=== PATIENT | male | born 1980 | race Caucasian/White ===

== ENCOUNTER → 2021-08-30 | Day surgery (SDC) | payer OTHER ==
[~2021-08-30] MED LIST: ADDERALL 10 MG10 MG PO; ALBUTEROL0.63 MG/3 NEB; BUPIVACAINE HCL 0.5% INJ 30 ML VIAL INJ ONE; DEXAMETHASONE SOD PHOS INJ 4 MG/ML SDV ONE; EPINEPHRINE 1 MG/ML 30ML VIAL ONE; FENTANYL CITRATE/PF 100MCG/2 ML INJ ONE; KETOROLAC TROMETHAMINE 30 MG/ML VIAL ONE; LIDOCAINE HCL 2% LOCAL INJ 5 ML SDV VIAL INJ ONE; MIDAZOLAM HCL 2 MG/2 ML VIAL ONE; ONDANSETRON HCL INJ 2MG/ML 2ML 2 MG/ML VIAL ONE; POVIDONE IODINE 0.05% 0.05 % ML PO ONE; PROPOFOL IV EMULSION 10 MG/ML 20 ML VIAL ONE; SEVOFLURANE INHAL SOLN 250 ML PEN BTL ONE; SINGULAIR10 MG PO; SODIUM CHLORIDE 0.9% 50ML 100 ML ONE; SYMBICORT 16010.2 GM INH; TRT INJ
[2021-08-30 09:30] VITALS: BP 138/89
== END | disposition home or self-care (01) ==
LOC: OR 06:00
PROVIDERS: ATTEND Orthopaedic Surgery
DX: S43.012A Anterior subluxation of left humerus, initial encounter (principal); S43.432A Superior glenoid labrum lesion of left shoulder, initial encounter; J45.909 Unspecified asthma, uncomplicated; F90.9 Attention-deficit hyperactivity disorder, unspecified type; X58.XXXA Exposure to other specified factors, initial encounter; Z01.810 Encounter for preprocedural cardiovascular examination; Z01.812 Encounter for preprocedural laboratory examination; Z20.822 Contact with and (suspected) exposure to COVID-19; Z79.899 Other long term (current) drug therapy
CPT/HCPCS: 29806; 93005; C1713; J0690; J1100; J1885; J2001; J2250; J2405; J2704; J3010; U0002